=== PATIENT | male | born 1990 | race Caucasian/White ===

== ENCOUNTER 2017-01-20 16:22 | Emergency (ER) | payer OTHER ==
[~2017-01-20] VITALS: Ht 180.3 cm; Wt 71.0 kg
[2017-01-20 16:26] VITALS: Ht 180.3 cm; Wt 71.0 kg
[2017-01-20] MEDS ORDERED: ALBUTEROL 0.083% (NEB) 2.5 MG/3 ML AMP HHN STA (16:48)
[2017-01-20 17:49] LABS: BASOPHILS % 0.3 % (0.0-2.0); EOSINOPHILS # 0.1 10^3/ul (0.0-0.5); EOSINOPHILS % 0.7 % (0.0-7.0); HEMATOCRIT 39.1 % (42.0-52.0); HEMOGLOBIN 13.1 g/dl (14.0-18.0); LYMPHOCYTES # 2.9 10^3/ul (0.8-2.9); LYMPHOCYTES % 31.6 % (15.0-51.0); MEAN CORPUSCULAR HEMOGLOBIN 27.8 pg (29.0-33.0); MEAN CORPUSCULAR HGB CONC 33.5 g/dl (32.0-37.0); MEAN CORPUSCULAR VOLUME 82.8 fl (82.0-101.0); MEAN PLATELET VOLUME 10.3 fl (7.4-10.4); MONOCYTE # 0.7 10^3/ul (0.3-0.9); MONOCYTES % 7.5 % (0.0-11.0); NEUTROPHILS % 59.8 % (39.0-77.0); PLATELET COUNT 182 10^3/UL (140-415); RED BLOOD COUNT 4.72 10^6/ul (4.70-6.10); RED CELL DISTRIBUTION WIDTH 11.9 % (11.5-14.5); WHITE BLOOD COUNT 9.2 10^3/ul (4.8-10.8)
[2017-01-20 18:13] LABS: ANION GAP 13 (8-16); BLOOD UREA NITROGEN 13 mg/dl (7-20); CALCIUM 9.3 mg/dl (8.4-10.2); CARBON DIOXIDE 26 mmol/L (21-31); CHLORIDE 102 mmol/L (97-110); CREATININE 0.99 mg/dl (0.61-1.24); GLUCOSE 112 mg/dl (70-220); SODIUM 138 mmol/L (135-144)
--- NOTE | 2017-01-20 18:24 | RADRPT ---
PROCEDURE: Portable chest x-ray. CLINICAL INDICATION: 26 years of age, male. Chest pain and shortness of breath. TECHNIQUE: Portable AP view of the chest. COMPARISON: None available. FINDINGS: Cardiomediastinal contours are normal. Lungs are clear. Mild blunting right costophrenic sulcus may represent scar. Negative for pleural effusion or pneumothorax. No acute bony abnormality. IMPRESSION: Negative for evidence of acute chest process. RPTAT: HCTS Physician Tasha Date Time Electronically viewed and signed by Physician Tasha on 01/20/2017 18:24 CS/
[2017-01-20 18:29] LABS: TROPONIN-I < 0.012 ng/ml (0.00-0.12)
[2017-01-20] MEDS ORDERED: POTASSIUM CHLORIDE (SR) 20 MEQ TAB PO STA (18:59)
--- NOTE | 2017-01-20 20:20 | ERD ---
ER Documentation Chief Complaint Date/Time DATE: 01/20/17 TIME: 20:16 Chief Complaint Complains of SOB states has Hx of Asthma HPI This 26-year-old male comes emergency room saying that he has profound shortness of breath mostly when he eats. He does not have it when he exercises. He had asthma as a child only and has not had any asthma exacerbations as an adult. Denies cough denies fevers and chills. Denies chest pain except for occasional chest discomfort. ROS All systems reviewed and are negative except as per history of present illness. Medications Home Meds Active Scripts Ranitidine Hcl* (Zantac*) 150 Mg Tablet, 150 MG PO BID Y for EPIGASTRIC PAIN, # 30 TAB Prov:LORENZOMAYTEEDNA DO 01/20/17 Allergies Allergies: Coded Allergies: No Known Allergy (Unverified , 01/20/17) PMhx/Soc Medical and Surgical Hx: pt denies Surgical Hx History of Surgery: No Hx Respiratory Disorders: Yes (asthma) Hx Alcohol Use: No Hx Substance Use: No Hx Tobacco Use: No Smoking Status: Never smoker Physical Exam Vitals Vital Signs Date Time Temp Pulse Resp B/P Pulse Ox O2 Delivery O2 Flow Rate FiO2 01/20/17 17:00 83 18 96 21 01/20/17 16:26 98.6 80 20 96/59 98 Physical Exam Const: [] No distress Head: Atraumatic Eyes: Normal Conjunctiva ENT: Normal External Ears, Nose and Mouth. Neck: Full range of motion..~ No meningismus. Resp: Clear to auscultation bilaterally Cardio: Regular rate and rhythm, no murmurs Abd: Soft, non tender, non distended. Normal bowel sounds Skin: No petechiae or rashes Back: No midline or flank tenderness Ext: No cyanosis, or edema Neur: Awake and alert Psych: Normal Mood and Affect Result Diagram: 01/20/17 1740 01/20/17 1740 Results 24 hrs Laboratory Tests Test 01/20/17 17:40 White Blood Count 9.210^3/ul Red Blood Count 4.7210^6/ul Hemoglobin 13.1g/dl Hematocrit 39.1% Mean Corpuscular Volume 82.8fl Mean Corpuscular Hemoglobin 27.8pg Mean Corpuscular Hemoglobin Concent 33.5g/dl Red Cell Distribution Width 11.9% Platelet Count 58097^3/UL Mean Platelet Volume 10.3fl Neutrophils % 59.8% Lymphocytes % 31.6% Monocytes % 7.5% Eosinophils % 0.7% Basophils % 0.3% Nucleated Red Blood Cells % 0.0/100WBC Neutrophils # (Manual) 510^3/ul Lymphocytes # 2.910^3/ul Monocytes # 0.710^3/ul Eosinophils # 0.110^3/ul Basophils # 0.010^3/ul Nucleated Red Blood Cells # 0.010^3/ul Sodium Level 138mmol/L Potassium Level 3.0mmol/L Chloride Level 102mmol/L Carbon Dioxide Level 26mmol/L Anion Gap 13 Blood Urea Nitrogen 13mg/dl Creatinine 0.99mg/dl Glucose Level 112mg/dl Calcium Level 9.3mg/dl Troponin I < 0.012ng/ml Current Medications Medications (Trade) Dose Ordered Sig/Willam Route PRN Reason Start Time Stop Time Status Last Admin Dose Admin Albuterol (Proventil 0.083% (Neb)) 5 mg ONCE STAT HHN 01/20/17 16:48 01/20/17 16:49 DC 01/20/17 16:58 Potassium Chloride (Klor-Con 20) 40 meq ONCE STAT PO 01/20/17 18:59 01/20/17 19:04 DC 01/20/17 19:11 Procedures/MDM 36-year-old male with symptoms of dyspnea and tiredness when eating. Patient states he is able to exercise well without feeling this but only when he is eating. Does have an mild ventricular conduction delay on first EKG that is not present on second EKG. Patient otherwise has felt asymptomatic throughout his stay in the emergency room. No signs of cardiac dysfunction. Given 40 mg once of potassium for his mildly depressed potassium patient has a good primary care doctor. I am discharging with instructions to call his doctor tomorrow for an echocardiogram and an appointment. Return precautions given EKG interpretation: Normal sinus rhythm rate of 71, normal axis, nonspecific intraventricular conduction delay with incomplete right bundle branch block, no ST or T-wave changes concerning for acute ischemia. athletic monitor interpretation: Normal sinus rhythm without arrhythmia Chest x-ray interpretation: I see no acute process, no widened mediastinum, no pneumothorax, no pulmonary edema, no fracture Departure Diagnosis: Primary Impression: Dyspnea Additional Impressions: Hypokalemia Abnormal EKG EDNA VENTURA DO Jan 20, 2017 20:20
[2017-01-20] MEDS ORDERED: RANI150T9 PO (20:30)
[2017-01-20 20:56] VITALS: BP 124/60; PULSE 50; RESP 16
== END 2017-01-20 20:57 | disposition home or self-care (01) ==
LOC: FTE 16:22
DX: R06.00 Dyspnea, unspecified (principal); E87.6 Hypokalemia; R94.31 Abnormal electrocardiogram [ECG] [EKG]; J45.909 Unspecified asthma, uncomplicated
CPT/HCPCS: 36415; 71010; 80048; 84484; 85025; 93005; 94664